=== PATIENT | male | born 1960 | race Caucasian/White ===

== ENCOUNTER 2022-05-22 12:46 | Emergency (ER) | payer OTHER, SELFPAY ==
[2022-05-22] VITALS (9 sets, daily range): BP systolic 126–150; BP diastolic 77–96; PULSE 50–95; RESP 12–20; TEMP 36.6; O2SAT 97–100
--- NOTE | ~2022-05-22 | XR_ITS ---
EXAMINATION: XR chest 1V portable DATE: 05/22/2022 13:29 INDICATION: Chest pain. TECHNIQUE: A single frontal view of the chest was obtained on 2 radiographs. COMPARISON: None. 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 No pleural effusion or pneumothorax. The heart size is normal. There is a left c hest wall pacer with leads in the right atrium and right ventricle. IMPRESSION: 1. No acute cardiopulmonary disease. Reviewed, dictated and finalized at location A.
--- NOTE | 2022-05-22 12:55 | ECG_ITS ---
Measurements Intervals Froid Rate: 87 P: 75 LA: 189 QRS: 34 QRSD: 97 T: 42 QT: 374 QTc: 450 Interpretive Statements SINUS RHYTHM WITH FREQUENT VENTRICULAR PREMATURE COMPLEXES INCOMPLETE RIGHT BUNDLE BRANCH BLOCK BORDERLINE ECG BASELINE ARTIFACT NO PREVIOUS ECG AVAILABLE FOR COMPARISON Electronically Signed On 05-22-2022 13:09:54 CDT by Mulugeta Orourke M.D.
--- NOTE | 2022-05-22 13:27 | ED.GENADULT ---
HPI - General Adult General Chief complaint: Arrhythmia/Palpitations Stated complaint: chest pain, defib fired Time Seen by Provider: 05/22/22 13:12 Source: RN notes reviewed History of Present Illness HPI narrative: Patient presents emergency department from home for his defibrillator firing. Patient states his defibrillator is a [employer] placed in December 2020 he is followed by Dr.'s Suleman High for cardiology at [facility]. He states that he had been helping to move today he states that he had began to feel dizzy and then he had one fire of his pacemaker and states he been feeling fine since then he denies any fevers or chills chest pain shortness of breath or any other symptoms Related Data Allergies Allergy/AdvReac Type Severity Reaction Status Date / Time ibuprofen Allergy Unknown Rash Verified 05/22/22 13:00 Review of Systems Review of Systems: Gen.: Denies fevers or chills ENT: Denies congestion Respiratory: Denies shortness of breath or cough CV: See HPI GI: Denies abdominal pain nausea, emesis or diarrhea Musculoskeletal: Denies back pain or muscle pain Neuro: Denies numbness, tingling, weakness or focal weakness Skin: Denies rash Except as documented, all other systems reviewed and negative [facility] Past Medical History Medical History (Updated 05/22/22 @ 18:08 by Derick Lindsay DO) Pacemaker Family History Family History (Updated 06/16/14 @ 07:13 by DOCTOR UNKNOWN) Father Malignant neoplasm of prostate Social History Social History Smoking status: Never smoker Exam Narrative: APPEARANCE: No acute distress, nontoxic, resting in bed EYES: EOMI HEENT: Normocephalic, atraumatic, OMM RESPIRATORY: No respiratory distress Clear to auscultation bilaterally with no rhonchi wheezing or rales. CARDIOVASCULAR: Regular rate and rhythm without murmurs rubs or gallops. ABDOMINAL: Soft, nontender, nondistended, no rebound or guarding MUSCULOSKELETAl: Moves all extremities. No clubbing, cyanosis or edema. NEURO: Awake and alert. Following commands, speech normal, no focal deficits SKIN:: Warm, dry. No rashes lesions or abrasions PSYCHIATRIC: Normal affect/mood, Course Course Emergency Course: Patient's pacemaker was interrogated patient had an episode of ventricular fibrillation that was cardioverted x1 Patient has a history of having a coronary artery disease has a history of going into torsades arrest after being on the supplement at that time he states he is currently on no supplements Discussed with Dr. Agrawal for Dr. High at [facility] this time accepts patient in transfer request the patient be started on metoprolol XL 25 mg grams x1 at this time Discussed with patient plan for transfer in agreement at this Vital Signs Vital signs: Vital Signs Temperature 98 F 05/22/22 12:53 Pulse Rate 86 05/22/22 12:53 Respiratory Rate 12 05/22/22 12:53 Blood Pressure 126/77 05/22/22 12:53 Pulse Oximetry 100 05/22/22 12:53 Temperature 98 F 05/22/22 12:53 Pulse Rate 62 05/22/22 16:39 Respiratory Rate 20 05/22/22 16:39 Blood Pressure 126/79 05/22/22 16:39 Pulse Oximetry 98 05/22/22 16:39 Medical Decision Making Vital Signs Vital Signs: Vital Signs Temperature 98 F 05/22/22 12:53 Pulse Rate 86 05/22/22 12:53 Respiratory Rate 12 05/22/22 12:53 Blood Pressure 126/77 05/22/22 12:53 Pulse Oximetry 100 05/22/22 12:53 Temperature 98 F 05/22/22 12:53 Pulse Rate 62 05/22/22 16:39 Respiratory Rate 20 05/22/22 16:39 Blood Pressure 126/79 05/22/22 16:39 Pulse Oximetry 98 05/22/22 16:39 Lab Data Result diagrams: 05/22/22 13:25 05/22/22 13:25 Labs: Lab Results 05/22/22 05/22/22 05/22/22 Range/Units 13:25 13:25 13:25 WBC 7.2 (4.5-10.0) K/mm3 RBC 4.31 L (4.6-6.20) M/mm3 Hgb 13.8 L (14.0-18.0) g/dL Hct 42.8
[2022-05-22 13:35] LABS: Basophils Percent Auto 0.3 % (0.2-1.2); Eosinophils Percent Auto 0.4 % (0-4.4); Hematocrit 42.8 % (42.0-52.0); Hemoglobin 13.8 g/dL (14.0-18.0); Immature Granulocyte Absolute 0.01 K/mm3 (0.00-0.031); Immature Granulocyte Percent A 0.1 % (0-0.5); Lymphocytes Absolute Auto 1.96 K/mm3 (0.9-3.2); Lymphocytes Percent Auto 27.2 % (18.3-44.2); Mean Corpuscular HGB Conc 32.2 g/dl (32-36); Mean Corpuscular Volume 99.3 fl (80-100); Mean Platelet Volume 10.1 fl (7.4-10.4); Monocytes Absolute Auto 0.4 K/mm3 (0.1-0.6); Neutrophils Absolute Auto 4.8 K/mm3 (1.3-6.7); Platelet Count Result 174 k/mm3 (150-375); Red Blood Count 4.31 M/mm3 (4.6-6.20); Red Cell Distribution Width 12.4 % (11.5-14.5); White Blood Count 7.2 K/mm3 (4.5-10.0)
[2022-05-22 13:47] LABS: INR 1.1; Prothrombin Time 13.6 Seconds (11.1-14.7)
[2022-05-22 13:48] LABS: Alanine Aminotransferase 14 U/L (6-50); Albumin Level 4.1 g/dL (3.5-5.1); Alkaline Phosphatase 50 U/L (38-126); Anion Gap 5 mmol/L (8-16); Aspartate Amino Transferase 30 U/L (17-59); Blood Urea Nitrogen 18 mg/dL (9-20); Calcium 8.8 mg/dL (8.4-10.2); Carbon Dioxide 28 mmol/L (22-30); Chloride 104 mmol/L (98-107); Estimated CRCL calculation 55 ml/min; Estimated Glomerular Filt Rate > 60; Glucose 95 mg/dL (65-110); Lipase 59 U/L (23-300); Magnesium 1.9 mg/dL (1.6-2.3); Partial Thromboplastin Time 31.5 SECONDS (22.3-36.8); Potassium 3.7 mmol/L (3.4-5.0); Sodium 137 mmol/L (137-145)
[2022-05-22 17:20] LABS: Troponin I 0.249 ng/mL (0.000-0.034)
[2022-05-22] MEDS: METOPROLOL SUCCINATE EXT REL 25 MG TABCR PO (18:19)
[2022-05-22 19:10] LABS: SARS-CoV-2 RNA PCR Negative
[2022-05-22] MEDS: ASPIRIN 81 MG CHEWABLE TABLET 324 MG PO (19:25)
--- NOTE | 2022-05-22 19:26 | PC.NURSE ---
Assumed care of pt, pt is alert and upright, discussed POC. Pt on tele monitor.
--- NOTE | 2022-05-22 19:39 | PC.NURSE ---
Call received from [facility] transfer center requesting info on pt, discussed POC and states should have a bed tonight and will call back with any info. Spoke to
[2022-05-22 19:44] LABS: Troponin I 0.297 ng/mL (0.000-0.034)
== END 2022-05-22 22:35 | disposition short-term general hospital (02) ==
PROVIDERS: Emergency Provider Emergency Medicine
DX: I49.01 Ventricular fibrillation (principal); R77.8 Other specified abnormalities of plasma proteins; Z95.810 Presence of automatic (implantable) cardiac defibrillator
CPT/HCPCS: 36415; 71045; 80053; 83690; 83735; 84484; 85025; 85610; 85730; 93005; 99285; A9270; C9803; U0003; U0005